=== PATIENT | male | born 1965 ===

== ENCOUNTER 2022-05-18 18:33 | Inpatient (IN) | payer SELFPAY ==
[~2022-05-18] VITALS: Ht 185.4 cm; Wt 99.6 kg
[2022-05-18 21:33] LABS: BASO % 0.2 % (0.0-2.0); EOS % 0.1 % (0.0-4.0); GRAN # 11.1 K/mm3 (1.4-6.5); HEMATOCRIT 40.1 % (42.0-52.0); HEMOGLOBIN 13.4 g/dl (13.5-18.0); LYMPH # 0.7 K/mm3 (1.2-3.4); LYMPH % 5.8 % (20.0-51.0); MEAN CELL VOLUME 86 fl (80.0-100.0); MEAN CORPUSCULAR HEMOGLOBIN 29 pg (27-31); MEAN CORPUSCULAR HGB CONC 33 g/dl (33.0-37.0); MEAN PLATELET VOLUME 9.9 fl (7.4-10.4); MONO # 0.7 K/mm3 (0.1-0.6); MONO % 5.3 % (1.7-9.3); PLATELET COUNT 204 K/mm3 (130-400); RED BLOOD COUNT 4.64 M/mm3 (4.20-5.60); REDCELL DISTRIBUTION WIDTH-CV 12.7 % (11.5-14.5)
[2022-05-18 21:47] LABS: CALCIUM 8.5 mg/dL (8.4-10.2); CREATININE, serum 0.75 mg/dL (0.72-1.25); POTASSIUM 4.1 mmol/L (3.5-4.5)
[2022-05-19 03:21] VITALS: BP 114/64; PULSE 68; TEMP 98.5
[2022-05-19 07:56] VITALS: BP 121/70; PULSE 72; TEMP 98.6
[2022-05-19 11:10] VITALS: BP 128/75; PULSE 75; TEMP 98.6
[2022-05-19 16:09] VITALS: BP 125/69; PULSE 72; TEMP 98.2
[2022-05-19 20:01] VITALS: BP 149/71; PULSE 71; TEMP 98.6
[2022-05-19 23:33] VITALS: BP 137/72; PULSE 65; TEMP 98.9
[2022-05-20] VITALS (13 sets, daily range): BP systolic 128–169; BP diastolic 65–98; PULSE 67–93; TEMP 97.8–98.9
[2022-05-21] VITALS (7 sets, daily range): BP systolic 120–155; BP diastolic 61–77; PULSE 63–86; TEMP 97.8–98.9
[2022-05-21 07:55] LABS: MEAN CELL VOLUME 85 fl (80.0-100.0); MEAN CORPUSCULAR HEMOGLOBIN 29 pg (27-31); MEAN CORPUSCULAR HGB CONC 34 g/dl (33.0-37.0); MEAN PLATELET VOLUME 9.6 fl (7.4-10.4); PLATELET COUNT 191 K/mm3 (130-400); RED BLOOD COUNT 4.12 M/mm3 (4.20-5.60); REDCELL DISTRIBUTION WIDTH-CV 12.6 % (11.5-14.5)
[2022-05-21 08:08] LABS: CREATININE, serum 0.81 mg/dL (0.72-1.25); POTASSIUM 3.8 mmol/L (3.5-4.5)
[2022-05-22 03:48] VITALS: BP 149/75; PULSE 71; TEMP 97.9
[2022-05-22 08:00] VITALS: BP 167/75; PULSE 73; TEMP 97.9
[2022-05-22 12:00] VITALS: BP 165/69; PULSE 66; TEMP 98
[2022-05-22 15:24] VITALS: BP 174/76; PULSE 68; TEMP 98.9
== END 2022-05-22 17:20 | disposition home or self-care (01) | DRG 494 ==
LOC: COL.ER 18:33 → SURG 20:51
PROVIDERS: Emergency Medicine; ADMIT Orthopaedic Surgery
PROC: 0QSJXZZ Reposition Right Fibula, External Approach (ICD-10-PCS; 2022-05-18)
PROC: 0QSGXZZ Reposition Right Tibia, External Approach (ICD-10-PCS; 2022-05-18)
PROC: 0QSG36Z Reposition Right Tibia with Intramedullary Internal Fixation Device, Percutaneous Approach (ICD-10-PCS; principal; 2022-05-20 08:00)
PROC: 0QHG34Z Insertion of Internal Fixation Device into Right Tibia, Percutaneous Approach (ICD-10-PCS; 2022-05-20 08:00)
DX: S82.241A Displaced spiral fracture of shaft of right tibia, initial encounter for closed fracture (principal); S82.831A Other fracture of upper and lower end of right fibula, initial encounter for closed fracture; W18.39XA Other fall on same level, initial encounter
CPT/HCPCS: OP; A9284; C1713; G0378; J0690; J1100; J1170; J1644; J2250; J2405; J2704; J3010; J7030; J7120; L4386